=== PATIENT | female | born 1990 | race Two or more races ===

== ENCOUNTER 2022-03-20 09:36 | Outpatient (CLI) | payer OTHER ==
[~2022-03-20 09:36] MED LIST: JENTADUETO 2.51 EAC1; LAMICTAL150 M1; LEVAQUIN500 MG PO; MOTRIN800 MG PO
== END 2022-03-20 10:23 | disposition home or self-care (01) ==
LOC: SONOGRAMA 09:36
PROVIDERS: ATTEND Obstetrics & Gynecology Gynecology
DX: N84.0 Polyp of corpus uteri (principal)

== ENCOUNTER 2023-12-17 09:07 | Outpatient (CLI) | payer OTHER | END 2023-12-17 09:12 | disposition home or self-care (01) | LOC: RX STUDY 09:07 | DX: N70.11 Chronic salpingitis (principal) ==